=== PATIENT | female | born 1955 | race Caucasian/White ===

== ENCOUNTER 2017-07-20 10:48 | Emergency (ER) | payer BC ==
[2017-07-20] MEDS: SOD CHLORIDE 0.9% 1,000 ML IV (11:52)
[2017-07-20] MEDS: ONDANSETRON 4 MG INJ IV (11:52)
[2017-07-20] MEDS: KETOROLAC 15 MG INJ IV (11:52)
[2017-07-20 12:16] LABS: ADD UMIC YES; UR ASCORBIC ACID NEGATIVE (NEGATIVE); UR BILIRUBIN (Dip) NEGATIVE (NEGATIVE); UR BLOOD (Dip) 2+ mg/dL (NEGATIVE); UR CLARITY CLEAR (CLEAR); UR COLOR YELLOW (YELLOW); UR GLUCOSE (Dip) NEGATIVE (NEGATIVE); UR KETONES (Dip) 1+ mg/dL (NEGATIVE); UR LEUKOCYTE ESTERASE (Dip) NEGATIVE Leu/ul (NEGATIVE); UR NITRITE (Dip) NEGATIVE (NEGATIVE); UR RBC 8 /HPF (0-5); UR SPECIFIC GRAVITY (Dip) 1.018 (1.003-1.030); UR TOTAL PROTEIN (Dip) NEGATIVE (NEGATIVE); UR UROBILINOGEN (Dip) NEGATIVE (NEGATIVE); UR WBC 1 /HPF (0-5)
[2017-07-20 12:19] LABS: ADD MAN DIFF? NO
[2017-07-20 12:20] LABS: WHITE BLOOD COUNT 5.3 10^3/ul (4.8-10.8)
[2017-07-20 12:20] LABS: ALANINE AMINOTRANSFERASE 68 IU/L (13-69); ALBUMIN 4.7 g/dl (3.3-4.9); ALBUMIN/GLOBULIN RATIO 1.62; ALKALINE PHOSPHATASE 57 IU/L (42-121); ANION GAP 19 (8-16); ASPARTATE AMINO TRANSFERASE 48 IU/L (15-46); BASOPHILS % 0.6 % (0.0-2.0); BILIRUBIN,INDIRECT 0.3 mg/dl (0-1.1); BILIRUBIN,TOTAL 0.3 mg/dl (0.2-1.3); BLOOD UREA NITROGEN 25 mg/dl (7-20); CALCIUM 9.8 mg/dl (8.4-10.2); CARBON DIOXIDE 29 mmol/L (21-31); CHLORIDE 97 mmol/L (97-110); CREATININE 0.78 mg/dl (0.44-1.00); EOSINOPHILS % 0.6 % (0.0-7.0); GLUCOSE 112 mg/dl (70-220); HEMATOCRIT 38.8 % (37.0-47.0); HEMOGLOBIN 13.5 g/dl (12.0-16.0); LIPASE 168 U/L (23-300); LYMPHOCYTES # 1.6 10^3/ul (0.8-2.9); LYMPHOCYTES % 30.3 % (15.0-51.0); MEAN CORPUSCULAR HEMOGLOBIN 31.8 pg (29.0-33.0); MEAN CORPUSCULAR HGB CONC 34.8 g/dl (32.0-37.0); MEAN CORPUSCULAR VOLUME 91.3 fl (82.0-101.0); MEAN PLATELET VOLUME 10.2 fl (7.4-10.4); MONOCYTE # 0.5 10^3/ul (0.3-0.9); NEUTROPHIL # 3.1 10^3/ul (1.6-7.5); NEUTROPHILS % 59.3 % (39.0-77.0); PLATELET COUNT 274 10^3/UL (140-415); POTASSIUM 3.9 mmol/L (3.5-5.1); RED BLOOD COUNT 4.25 10^6/ul (4.20-5.40); RED CELL DISTRIBUTION WIDTH 12.4 % (11.5-14.5); SODIUM 141 mmol/L (135-144); TOTAL PROTEIN 7.6 g/dl (6.1-8.1)
== END 2017-07-20 15:00 | disposition home or self-care (01) ==
LOC: E/R 10:48
DX: M54.5 Low back pain (principal); E86.0 Dehydration; R31.29 Other microscopic hematuria; R82.4 Acetonuria; I10 Essential (primary) hypertension; R40.2252 Coma scale, best verbal response, oriented, at arrival to emergency department; R40.2142 Coma scale, eyes open, spontaneous, at arrival to emergency department; R40.2362 Coma scale, best motor response, obeys commands, at arrival to emergency department
CPT/HCPCS: 36415; 80053; 81001; 83690; 85025; 96374; 96375; 99284-25

== ENCOUNTER 2018-12-07 11:57 | Inpatient (IN) | payer BC ==
[2018-12-07 12:56] LABS: ADD MAN DIFF? NO
[2018-12-07 12:59] LABS: WHITE BLOOD COUNT 8.7 10^3/ul (4.8-10.8)
[2018-12-07 12:59] LABS: BASOPHILS % 0.5 % (0.0-2.0); EOSINOPHILS # 0.1 10^3/ul (0.0-0.5); HEMATOCRIT 37.8 % (37.0-47.0); HEMOGLOBIN 12.7 g/dl (12.0-16.0); LYMPHOCYTES # 1.6 10^3/ul (0.8-2.9); LYMPHOCYTES % 17.9 % (15.0-51.0); MEAN CORPUSCULAR HEMOGLOBIN 31.6 pg (29.0-33.0); MEAN CORPUSCULAR HGB CONC 33.6 g/dl (32.0-37.0); MEAN PLATELET VOLUME 10.2 fl (7.4-10.4); MONOCYTE # 0.7 10^3/ul (0.3-0.9); MONOCYTES % 8.1 % (0.0-11.0); NEUTROPHIL # 6.3 10^3/ul (1.6-7.5); NEUTROPHILS % 72.3 % (39.0-77.0); PLATELET COUNT 274 10^3/UL (140-415); RED BLOOD COUNT 4.02 10^6/ul (4.20-5.40); RED CELL DISTRIBUTION WIDTH 12.6 % (11.5-14.5)
[2018-12-07 13:14] LABS: ALANINE AMINOTRANSFERASE 51 IU/L (13-69); ALBUMIN 4.7 g/dl (3.3-4.9); ALBUMIN/GLOBULIN RATIO 1.62; ALKALINE PHOSPHATASE 58 IU/L (42-121); ANION GAP 10 (5-13); ASPARTATE AMINO TRANSFERASE 38 IU/L (15-46); BILIRUBIN,INDIRECT 0.5 mg/dl (0-1.1); BILIRUBIN,TOTAL 0.5 mg/dl (0.2-1.3); BLOOD UREA NITROGEN 27 mg/dl (7-20); CALCIUM 10.8 mg/dl (8.4-10.2); CARBON DIOXIDE 32 mmol/L (21-31); CHLORIDE 96 mmol/L (97-110); CREATININE 0.84 mg/dl (0.44-1.00); Estimated GFR > 60 mL/min (>60); GLUCOSE 112 mg/dl (70-220); LIPASE 153 U/L (23-300); POTASSIUM 3.9 mmol/L (3.5-5.1); SODIUM 138 mmol/L (135-144); TOTAL PROTEIN 7.6 g/dl (6.1-8.1)
[2018-12-07] MEDS ORDERED: SOD CHLORIDE 0.9% 1,000 ML IV ×2 (13:19→14:26)
[2018-12-07 13:20] LABS: ADD UMIC YES; UR ASCORBIC ACID NEGATIVE (NEGATIVE); UR BILIRUBIN (Dip) NEGATIVE (NEGATIVE); UR BLOOD (Dip) 1+ mg/dL (NEGATIVE); UR CLARITY CLOUDY (CLEAR); UR COLOR YELLOW (YELLOW); UR GLUCOSE (Dip) NEGATIVE (NEGATIVE); UR KETONES (Dip) NEGATIVE (NEGATIVE); UR LEUKOCYTE ESTERASE (Dip) NEGATIVE Leu/ul (NEGATIVE); UR NITRITE (Dip) NEGATIVE (NEGATIVE); UR RBC 7 /HPF (0-5); UR SPECIFIC GRAVITY (Dip) 1.016 (1.003-1.030); UR TOTAL PROTEIN (Dip) NEGATIVE (NEGATIVE); UR UROBILINOGEN (Dip) NEGATIVE (NEGATIVE); UR WBC 2 /HPF (0-5)
[2018-12-07] MEDS ORDERED: ONDANSETRON 4 MG INJ IV ×4 (13:30→15:30)
[2018-12-07] MEDS ORDERED: ACETAMINOPHEN 325 MG TAB PO ×2 (13:30→14:30)
[2018-12-07 14:06] LABS: INR 0.86; PROTIME 11.8 Sec (11.9-14.9); PT RATIO 0.9
[2018-12-07 14:07] LABS: PARTIAL THROMBOPLASTIN TIME 31.5 Sec (23.0-35.0)
[2018-12-07] MEDS ORDERED: BUPIVACAINE 0.25%/EPI (SDV) 10 ML INJ (14:28)
[2018-12-07] MEDS ORDERED: HYDROCODONE/APAP (5/325) TAB PO ×2 (14:30→15:00)
[2018-12-07] MEDS ORDERED: NACL 0.9% 3 ML SYG IV (14:30)
[2018-12-07] MEDS ORDERED: morphine 2 MG INJ IV ×2 (14:30→15:00)
[2018-12-07] MEDS ORDERED: LIDOCAINE 2% (SDV) 5 ML INJ (14:40)
[2018-12-07] MEDS ORDERED: SUCCINYLCHOLINE CHLORIDE 100 MG/5 ML SYG IV (14:40)
[2018-12-07] MEDS ORDERED: PROPOFOL 20 ML (14:40)
[2018-12-07] MEDS ORDERED: MIDAZOLAM 1 MG/ML 2 ML INJ (14:40)
[2018-12-07] MEDS ORDERED: ROCURONIUM 50 MG INJ (14:40)
[2018-12-07] MEDS ORDERED: FENTAnyl 50 MCG/ML VIAL ×2 (14:40→15:15)
[2018-12-07] MEDS ORDERED: METOCLOPRAMIDE 10 MG INJ (14:41)
[2018-12-07] MEDS ORDERED: ONDANSETRON 4 MG INJ (14:41)
[2018-12-07] MEDS ORDERED: SUGAMMADEX SODIUM 200 MG/2 ML VIAL IV (14:41)
[2018-12-07] MEDS: LIDOCAINE 1% (MPF) 30 ML INJ (15:00)
[2018-12-07] MEDS ORDERED: LABETALOL HCL 20MG INJ (15:07)
[2018-12-07] MEDS ORDERED: PROCHLORPERAZINE 10 MG INJ IV (15:30)
[2018-12-07] MEDS ORDERED: HYDROmorphONE 1 MG/5 ML IV SYRINGE IV (15:30)
[2018-12-07] MEDS ORDERED: FENTAnyl 50 MCG/ML VIAL IV (15:30)
[2018-12-07] MEDS ORDERED: MEPERIDINE 25 MG INJ IV (15:30)
[2018-12-07] MEDS ORDERED: OXYCODONE/ACETAMINOPHEN (5/325) TAB PO (15:30)
[2018-12-07] MEDS: metroNIDAZOLE 500 MG/NS (PMX) 100 ML IVPB ×2 (18:11→21:33)
[2018-12-07] MEDS: CIPROFLOXACIN 200 MG/D5W IVPB 100 ML IVPB (18:59)
[2018-12-07] MEDS: ACETAMINOPHEN 325 MG TAB PO (20:59)
[2018-12-07] MEDS: ATORVASTATIN 10 MG TAB PO (21:33)
[2018-12-07] MEDS: traZODone 50 MG TAB PO (21:33)
[2018-12-07] MEDS: D5-NS + KCL 20 MEQ 1,000 ML IV ×2 (23:43→23:49)
[2018-12-08] MEDS: CIPROFLOXACIN 200 MG/D5W IVPB 100 ML IVPB ×2 (02:22→09:31)
[2018-12-08] MEDS: metroNIDAZOLE 500 MG/NS (PMX) 100 ML IVPB (06:13)
[2018-12-08] MEDS: ENOXAPARIN 40 MG/0.4 ML SYG SC (06:15)
[2018-12-08 06:28] LABS: ADD MAN DIFF? NO
[2018-12-08 06:32] LABS: BASOPHILS % 0.3 % (0.0-2.0); EOSINOPHILS % 0.4 % (0.0-7.0); HEMOGLOBIN 10.5 g/dl (12.0-16.0); LYMPHOCYTES # 1.6 10^3/ul (0.8-2.9); LYMPHOCYTES % 23.3 % (15.0-51.0); MEAN CORPUSCULAR HEMOGLOBIN 32.1 pg (29.0-33.0); MEAN CORPUSCULAR HGB CONC 32.8 g/dl (32.0-37.0); MEAN CORPUSCULAR VOLUME 97.9 fl (82.0-101.0); MEAN PLATELET VOLUME 9.9 fl (7.4-10.4); MONOCYTE # 0.7 10^3/ul (0.3-0.9); MONOCYTES % 9.8 % (0.0-11.0); NEUTROPHIL # 4.6 10^3/ul (1.6-7.5); NEUTROPHILS % 65.8 % (39.0-77.0); PLATELET COUNT 215 10^3/UL (140-415); RED BLOOD COUNT 3.27 10^6/ul (4.20-5.40); RED CELL DISTRIBUTION WIDTH 12.7 % (11.5-14.5)
[2018-12-08 06:32] LABS: WHITE BLOOD COUNT 6.9 10^3/ul (4.8-10.8)
[2018-12-08 06:54] LABS: ANION GAP 5 (5-13); BLOOD UREA NITROGEN 16 mg/dl (7-20); CALCIUM 9.1 mg/dl (8.4-10.2); CARBON DIOXIDE 34 mmol/L (21-31); CHLORIDE 96 mmol/L (97-110); CREATININE 0.98 mg/dl (0.44-1.00); Estimated GFR 57 mL/min (>60); GLUCOSE 126 mg/dl (70-220); POTASSIUM 4.1 mmol/L (3.5-5.1); SODIUM 135 mmol/L (135-144)
[2018-12-08 07:04] LABS: CHOLESTEROL 222 mg/dl (100-200)
[2018-12-08 07:04] LABS: CHOL/HDL RATIO 4.7 RATIO; HDL CHOLESTEROL 47 mg/dl (35-98); LDL CHOLESTEROL,CALCULATED 128 mg/dl; TRIGLYCERIDES 233 mg/dl (0-149)
[2018-12-08 07:11] LABS: PHOSPHORUS 4.2 mg/dl (2.5-4.9)
[2018-12-08 07:11] LABS: MAGNESIUM 1.4 mg/dl (1.7-2.5)
[2018-12-08] MEDS: FLUOXETINE 20 MG CAP PO (09:28)
[2018-12-08] MEDS: HYDROCHLOROTHIAZIDE 25 MG TAB PO (09:29)
[2018-12-08] MEDS: ATENOLOL 25 MG TAB PO (09:30)
[2018-12-08] MEDS: BENAZEPRIL 40 MG TAB PO (09:31)
[2018-12-08] MEDS: IBUPROFEN 600 MG TAB PO (09:31)
[2018-12-08] MEDS: D5-NS + KCL 20 MEQ 1,000 ML IV (10:31)
== END 2018-12-08 12:50 | disposition home or self-care (01) | DRG 343 ==
LOC: E/R 11:57 → REC 13:27 → 2NE 16:38
PROC: 0DTJ4ZZ Resection of Appendix, Percutaneous Endoscopic Approach (ICD-10-PCS; principal; 2018-12-07 14:30)
DX: K35.80 Unspecified acute appendicitis (principal); I10 Essential (primary) hypertension; E78.5 Hyperlipidemia, unspecified; M19.90 Unspecified osteoarthritis, unspecified site; K58.9 Irritable bowel syndrome, unspecified
CPT/HCPCS: 36415; 71045; 74176; 80048; 80053; 80061; 81001; 83690; 83735; 84100; 85025; 85610; 85730; 88304; 93005; 99285-25

== ENCOUNTER 2018-12-13 16:27 | Emergency (ER) | payer BC | END 2018-12-13 18:05 | disposition home or self-care (01) | LOC: FTE 16:27 | DX: Z48.01 Encounter for change or removal of surgical wound dressing (principal); I10 Essential (primary) hypertension | CPT/HCPCS: 99281 ==